=== PATIENT | female | born 1980 | race Caucasian/White ===

== ENCOUNTER 2021-12-26 09:47 | Outpatient (CLI) | payer OTHER, SELFPAY ==
--- NOTE | ~2021-12-26 | MM_ITS ---
EXAMINATION: MM screening simon BI w terese HISTORY: Baseline screening mammogram TECHNIQUE: Craniocaudal and mediolateral oblique 3-D tomosynthesis images were obtained and synthetic 2-D images were generated. CAD analysis was submitted and interpreted. COMPARISON: None, baseline BREAST PARENCHYMAL COMPOSITION: The breasts are heterogeneously dense, which may obscure small masses . FINDINGS: There is no suspicious mass, calcification, or architectural distortion to suggest malignan cy in either breast. IMPRESSION: 1. No mammographic evidence of malignancy. 2. Recommend routine screening mammography in one year. BI-RADS Category 1: Negative Reviewed, dictated and finalized at location A.
== END 2021-12-26 09:48 | disposition home or self-care (01) ==
LOC: ANHIMG 09:50
PROVIDERS: PCP Obstetrics & Gynecology; Visit Provider Obstetrics & Gynecology
DX: Z12.31 Encounter for screening mammogram for malignant neoplasm of breast (principal)
CPT/HCPCS: 77063; 77067

== ENCOUNTER → 2022-09-20 11:18 | Outpatient (CLI) | payer OTHER, SELFPAY ==
--- NOTE | ~2022-09-20 | XR_ITS ---
Cervical Spine: AP, lateral, open-mouth views Clinical History: Pain Findings: The normal lordotic curve is maintained. The vertebral bodies and posterior elements appea r intact. The intervertebral disc spaces are well maintained. Pre-vertebral soft tissues are unremar kable. Impression: No significant abnormality is seen. Please note that CT imaging is significantly more sensitive for cervical spine trauma, and should be performed for further evaluation if clinically warranted. Reviewed, dictated and finalized at [facility]. Impression: No significant abnormality is seen. Please note that CT imaging is significant ly more sensitive for cervical spine trauma, and should be performed for furthe r evaluation if clinically warranted.
== END ==
PROVIDERS: Visit Provider Chiropractor
DX: M54.2 Cervicalgia (principal)
CPT/HCPCS: 72040

== ENCOUNTER 2023-06-19 07:27 | Outpatient (CLI) | payer BC, SELFPAY ==
--- NOTE | ~2023-06-19 | MM_ITS ---
EXAMINATION: MM screening [facility] BI w terese HISTORY: Screening TECHNIQUE: Craniocaudal and mediolateral oblique 3-D tomosynthesis images were obtained and synthetic 2-D images were generated. CAD analysis was submitted and interpreted. COMPARISON: 12/26/2021 BREAST PARENCHYMAL COMPOSITION: There are scattered areas of fibroglandular density. FINDINGS: There is developing asymmetry in the outer aspect of the left breast on CC view. The right breast is stable without evidence for malignancy. IMPRESSION: 1. Developing asymmetries of the outer aspect of the left breast. 2. Additional mammographic views and possible breast ultrasound are recommended. BI-RADS Category 0: Incomplete: Needs additional imaging evaluation. Reviewed, dictated and finalized at location A. CLERK IMPRESSION: 1. Developing asymmetries of the outer aspect of the left breast. 2. Additional mammographic views and possible breast ultrasound are recommended . BI-RADS Category 0: Incomplete: Needs additional imaging evaluation.
== END 2023-06-19 07:28 | disposition home or self-care (01) ==
PROVIDERS: PCP Nurse Practitioner Adult Health; Visit Provider Registered Nurse
DX: Z12.31 Encounter for screening mammogram for malignant neoplasm of breast (principal); N64.89 Other specified disorders of breast
CPT/HCPCS: 77063; 77067

== ENCOUNTER 2023-07-18 10:35 | Outpatient (CLI) | payer BC, SELFPAY ==
--- NOTE | ~2023-07-18 | MMUS_ITS ---
EXAMINATION: MM diagnostic simon LT w terese, US breast LT limited HISTORY: Follow-up left breast asymmetries TECHNIQUE: Additional 3-D tomosynthesis images of the left breast were performed and synthetic 2-D im ages were generated. CAD analysis was submitted and interpreted. High resolution Limited left breast ultrasound was performed. COMPARISON: Comparison to multiple prior studies sequentially, with oldest reviewed study dated 12/2021. BREAST PARENCHYMAL COMPOSITION: Not dense: There are scattered areas of fibroglandular density. FINDINGS: MAMMOGRAPHIC FINDINGS: There are no suspicious masses, calcifications or architectural distortion of the left breast. The le ft breast asymmetries are less apparent with spot compression views ULTRASOUND: Limited left breast ultrasound: Normal heterogeneous echotexture without focal solid or cystic mass. IMPRESSION: 1. No evidence for malignancy in the left breast. 2. Routine yearly screening mammogram and regular clinical breast examination are recommended. BI-RADS Category 1: Negative Reviewed, dictated and finalized at location A. TIONAL EDUCATION PROFESSIONAL IMPRESSION: 1. No evidence for malignancy in the left breast. 2. Routine yearly screening mammogram and regular clinical breast examination a re recommended. BI-RADS Category 1: Negative
== END 2023-07-18 10:36 | disposition home or self-care (01) ==
LOC: ANHIMG 10:37
PROVIDERS: PCP Nurse Practitioner Adult Health; Visit Provider Registered Nurse
DX: R92.8 Other abnormal and inconclusive findings on diagnostic imaging of breast (principal)
CPT/HCPCS: 76642; 77061; 77065; G0279

== ENCOUNTER 2024-04-29 08:15 | Outpatient (CLI) | payer BC, SELFPAY ==
[2024-04-29 20:29] LABS: Alanine Aminotransferase 11 U/L (6-35); Albumin Level 4.3 g/dL (3.5-5.1); Alkaline Phosphatase 52 U/L (38-126); Anion Gap 5 mmol/L (4-12); Aspartate Amino Transferase 44 U/L (14-36); Bilirubin,Total 0.7 mg/dL (0.2-1.3); Blood Urea Nitrogen 10 mg/dL (7-17); Calcium 9.2 mg/dL (8.4-10.2); Carbon Dioxide 28 mmol/L (22-30); Chloride 104 mmol/L (98-107); Cholesterol 188 mg/dL (0-200); Estimated Glomerular Filt Rate > 60; Glucose 80 mg/dL (65-110); HDL Direct 62 mg/dL; Potassium 4.3 mmol/L (3.4-5.0); Sodium 137 mmol/L (137-145); Triglycerides 65 mg/dL (<150)
[2024-04-29 20:39] LABS: Hematocrit 38.7 % (37.0-47.0); Hemoglobin 12.3 g/dL (12.0-15.0); Mean Corpuscular HGB Conc 31.8 g/dl (32-36); Mean Corpuscular Hemoglobin 31.5 pg (26-34); Mean Platelet Volume 10.9 fl (7.4-10.4); Platelet Count Result 243 k/mm3 (150-375); Red Blood Count 3.91 M/mm3 (4.2-5.4); Red Cell Distribution Width 12.6 % (11.5-14.5); White Blood Count 6.3 K/mm3 (4.5-10.0)
[2024-04-29 20:41] LABS: LDL Cholesterol Direct 93 mg/dL
[2024-04-29 20:47] LABS: Free T4 Free Thyroxine 0.82 ng/dL (0.78-2.19); Vitamin D 25 Hydroxy 43.7 ng/mL
[2024-05-01 09:03] LABS: Thyroid Peroxidase Antibodies <1 IU/mL (<9)
== END 2024-04-29 08:16 | disposition home or self-care (01) ==
PROVIDERS: PCP Nurse Practitioner Adult Health; Visit Provider Nurse Practitioner Adult Health
DX: R53.83 Other fatigue (principal); Z13.29 Encounter for screening for other suspected endocrine disorder; Z13.228 Encounter for screening for other metabolic disorders; Z13.220 Encounter for screening for lipoid disorders; Z13.9 Encounter for screening, unspecified
CPT/HCPCS: 36415; 80053; 80061; 82306; 82607; 84439; 84443; 85027; 86376

== ENCOUNTER 2024-05-28 14:24 | Outpatient (CLI) | payer OTHER, SELFPAY ==
[2024-05-30 04:47] LABS: FSH 7.5 mIU/mL
== END 2024-05-28 14:25 | disposition home or self-care (01) ==
LOC: ANHLAB 14:26
PROVIDERS: PCP Nurse Practitioner Adult Health; Visit Provider Nurse Practitioner Obstetrics & Gynecology
DX: N95.1 Menopausal and female climacteric states (principal)
CPT/HCPCS: 36415; 82670; 83001; 84443

== ENCOUNTER 2024-08-04 10:29 | Outpatient (CLI) | payer OTHER, SELFPAY ==
--- NOTE | ~2024-08-04 | US_ITS ---
Left anterior ABDOMINAL wall ULTRASOUND (Doppler ultrasound interrogation techniques used as needed f or this exam.) Ordering provider: Jane Moon APRN History: . R22.2 - Localized swelling, mass and lump, trunk . Comparison: None. FINDINGS/impression: No definite mass is seen. Reviewed, dictated and finalized at location A.
== END 2024-08-04 10:30 | disposition home or self-care (01) ==
LOC: MICIMG 10:30
PROVIDERS: PCP Nurse Practitioner Adult Health; Visit Provider Nurse Practitioner Adult Health
DX: R22.2 Localized swelling, mass and lump, trunk (principal)
CPT/HCPCS: 76705

== ENCOUNTER 2024-08-20 14:37 | Outpatient (CLI) | payer OTHER, SELFPAY ==
--- NOTE | ~2024-08-20 | MM_ITS ---
EXAMINATION: MM screening simon BI w terese HISTORY: Screening TECHNIQUE: Craniocaudal and mediolateral oblique 3-D tomosynthesis images were obtained and synthetic 2-D images were generated. CAD analysis was submitted and interpreted. COMPARISON: Comparison to multiple prior studies sequentially, with oldest reviewed study dated 12/2021. BREAST PARENCHYMAL COMPOSITION: Not dense: There are scattered areas of fibroglandular density. FINDINGS: There is no evidence of suspicious mass, calcification, or architectural distortion to sugg est malignancy in either breast. There has been no suspicious interval change. IMPRESSION: 1. No mammographic evidence of malignancy. 2. Recommend routine screening mammography in one year. BI-RADS Category 1: Negative Reviewed, dictated and finalized at location A.
--- OUTSIDE RECORDS SUMMARY | 2024-08-20 16:06 | XMS_ITS | Encounter Summary ---
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
--- OUTSIDE RECORDS SUMMARY | 2024-08-20 16:06 | XMS_ITS | Encounter Summary ---
Author Organization [facility] Address [address] [place] [address] Care Team Providers Care Materials Associate Name Role Phone Anahi Tan MD Primary Care Provider [phone] Encounter Details Date Type Department Care Team (Late st Contact Info) Description 11/02/2003 Outpatient Historical [facility] Internal Medicine - [place] [address] [place] [address] [place] [address] [place] [facility] [place] [address] Social History Tobacco Use Types Packs/Day Years Used Date Smoking Tobacco: Never Assessed Comments Unknown Sex and Gender Information Value Date Recorded Sex Assigned at Not on file 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
--- OUTSIDE RECORDS SUMMARY | 2024-08-20 16:06 | XMS_ITS | Encounter Summary ---
Author Organization [facility] Address [address] [place] [address] Care Team Providers Care Avionics Supervisor Name Role Phone Anahi Tan MD Primary Care Provider [phone] Encounter Details Date Type Department Care Team (Late st Contact Info) Description 04/18/2004 Outpatient Historical [facility] Internal Medicine - [place] [address] [place] [address] [place] [address] [facility] [place] [address] Social History Tobacco Use Types Packs/Day Years Used Date Smoking Tobacco: Never Assessed Comments Unknown Sex and Gender Information Value Date Recorded Sex Assigned at Not on file 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
--- OUTSIDE RECORDS SUMMARY | 2024-08-20 16:06 | XMS_ITS | Clinical Summary ---
[facility] Address [address] [facility] [address] Attn: Epic Prelude ADT [place] [address] Care Team Providers Care Host/Hostess Ground Name Role Phone Anahi Tan MD Primary Care Provider Allergies Active Allergy Reactions Criticality Noted Date Comments No Known Allergies 04/18/2004 Active Problems Problem Noted Date Diagnosed Date Morbid obesity 04/19/2004 Other and unspecified hyperlipidemia 04/18/2004 Rash and other nonspecific skin eruption 004 Diarrhea 11/02/2003 Migraine, unspecified, witho ut mention of intractable migraine without mention of status migrainosus 11/02/2003 Lumbago 11/02/2003 Routine general medical exam ination at a health care facility 11/02/2003 Social History Tobacco Use Types Packs/Day Years Used Date Smoking Tobacco: Never Assessed Comments Unknown Sex and Gender Information Value Date Recorded Sex Assigned at Not on file 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 Gender Identity Not on file Sexual Orientation Not on file Plan of Treatment Health Maintenance Due Date Last Done Comments DTAP/TDAP/TD VACCINES (1 - Tdap) 1999 HEPATITIS B VACCINES (1 of 3 - 19+ 3-dose series) 1999 HPV/Cotest (21-29) 2001 PAP SMEAR 2001 CERVICAL CANCER SCREENING 2010 HPV/Cotest (30-65) 2010 PAP SMEAR 2010 BREAST CANCER SCREENING 2020 INFLUENZA VACCINE (#1) 2023 HPV VACCINES Aged Out No longer eligi ble based on patient's age to complete this topic Care Teams Host/Hostess Ground Relationship Specialty [place] [address] [place] [address] PCP - General 09/25/07
--- OUTSIDE RECORDS SUMMARY | 2024-08-20 16:06 | XMS_ITS | Clinical Summary ---
Author Organization [facility] Address [address] [place] [address] Care Team Providers Care Blue Leather Setter Name Role Phone Kimhaylie Jane JOESPH Primary Care Provider [phone] Allergies Active Allergy Reactions Criticality Noted Date Comments Adhesive Tape-Silicones Rash Medium 04/24/2017 Oxycodone-Acetaminophen Vomiting Low 01/01/2018 Medications cyanocobalamin (Vitamin B-12) 500 mcg tabletIndication s:Prevention of Vitamin B12 Deficiency Take 1 tablet (500 mcg total) by mouth daily. 30 tablet 01/11/2018 Active docusate sodium (COLACE) 100 mg capsuleIndicatio ns:constipation, stool softener Take 1 capsule (100 mg total) by mouth 2 (two) times a day. 30 capsule 01/11/2018 Active multivit-mineral -iron-lutein tablet Take by mouth. Active simethicone (MYLICON,GAS-X) 125 mg capsule Take 180 mg by mouth every 6 (six) hours as needed for flatulence. Active LILETTA 19.5 mcg/24 hrs (5 yrs) 52 mg IUD 09/09/2018 Acti ve ascorbic acid (VITAMIN C) 500 mg tablet,chewable Take 1 tablet/chew tab (500 mg total) by mouth daily Active biotin 1 mg tablet Take 1 tablet (1,000 mcg total) by mouth 3 (three) times a day Active cholecalciferol (VITAMIN D-3) 5,000 unit tablet Active Lactobacillus acidophilus 10 billion cell capsule Take by mouth Active FLUoxetine 10 mg tablet 07/03/2023 Active Active Problems Problem Noted Date Diagnosed Date Syncope and collapse 05/05/2023 Mixed hyperlipidemia 05/10/2018 Status post bariatric surgery 01/18/2018 Morbid obesity 11/07/2017 Overview (11/07/2017): Added automatically from request for surgery [id number] Hypertension 11/02/2017 Overview (11/02/2017): On Amlodipin 10 mg Tolerating well Diastolic bp has been slightly high , in mid 80s, was in 90s today Assessment & Plan (11/02/2017 8:40 AM CDT): Recommended daily monitoring and asked her to send us her Bp log Will adjust medicine if needed Continue with Amlodipin 10 mg for now Class 2 obesity in adult 11/02/2017 Overview (11/02/2017): Pt has been on Saxenda She also has been watching her diet and exercising Has lost about 10 lb since 06/2107 Considering gastric by pass surgery Assessment & Plan (11/02/2017 8:38 AM CDT): Will continue with saxenda Continue with diet and exercise Recommended going forward with gastric by pass surgery Surgical History Surgery Date Site/Laterality Comments MYRINGOTOMY W/ TUBES Myringotomy - (Added by TW Conv) [place] CHOLECYSTECTOMY Cholecystectomy - (Added by TW Conv) WRIST SURGERY Wrist Surgery - cyst removal in 2015 (Added by TW Conv) GALLBLADDER SURGERY Gallbladder Surgery - (Added by TW Conv) MICRODISCECTOMY LUMBAR 05/21/2012 - 05/20/2013 L5-S1 KNEE ARTHROSCOPY W/ LATERAL RELEASE 05/21/2008 - 05/20/2009 Right CYST REMOVAL 05/21/2015 - 05/20/2016 Left wrist MITZY-EN-Y PROCEDURE Medical History Medical History Date Comments Other intervertebral disc de generation, lumbosacral region Disc degeneration, lumbosacr al - L5-S1 -- undergoing injection treatment. (Added by TW Conv) Primary osteoarthritis of one knee Osteoarthritis of knee - (Added by TW Conv) Encounter for screening for other suspected endocrine disorder Thyroid disorder screenin g - (Added by TW Conv) Encounter for screening for other suspected endocrine disorder Thyroid disorder screenin g - (Added by TW Conv) Other specified counseling Advan ce care planning - (Added by TW Conv) Headache Hyperlipidemia PCOS (polycystic ovarian syndrome) Fatty liver Prediabetes Migraine PONV (postoperative nausea and vomiting) post op nausea does well with Zofran and scopolamine patch in holding Type 2 diabetes mellitus (HCC) Hypertension Family History Medical History Relation Name Comments Arthritis Father Family history of arthritis - (Added by TW Conv)/Family history of arthritis - (Added by TW Conv) Cancer Father Family history of malignant neoplasm - (Added by TW Conv)/Family history of malignant neoplasm - (Added by TW Conv) Diabetes Father Family history of diabetes mellitus - (Added by TW Conv)/Family history of diabetes mellitus - (Added by TW Conv) Hypertension Father Family history of hypertension - (Added by TW Conv)/Family history of hypertension - (Added by TW Conv) Kidney disease Father Family histor y of kidney disease - (Added by TW Conv)/Family history of kidney disease - (Added by TW Conv) Melanoma Father Melanoma - (Add ed by TW Conv)/Melanoma - (Added by TW Conv) Migraines Father Anesthesia problems Neg Hx Early Neg Hx Heart attack Neg Hx Heart disease Neg Hx Malig Hypertension Neg Hx Malig Hyperthermia Neg Hx Pseudochol deficiency Neg Hx Stroke Neg Hx Relation Name Status Comments Father Social History Tobacco Use Types Packs/Day Years Used Date Smoking Tobacco: Former Cigarettes 0 01/01/1998 - 01/02/2000 Smokeless Tobacco: Never Tobacco Cessation:Counseling Given: Not Answered Alcohol Use Standard Drinks/Week Comments No 0 (1 standard drink = 0.6 oz pur e alcohol) Comments No Sex and Gender Information Value Date Recorded Sex Assigned at Not on file Legal Sex Female 10:51 AM 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 OIL WELL Gender Identity Female 10/15/2019 7:47 AM CDT Sexual Orientation Straight 10/15/2019 7: 47 AM CDT Obstetrics History Last Filed Vital Signs Vital Sign Reading Time Taken Comments Blood Pressure 147/81 07/25/2023 8:08 AM 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 OIL WELL Pulse 62 07/25/2023 8:08 AM 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 OIL WELL Temperature 36.9 C (98.4 F) 07/25/2023 8:08 AM 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 OIL WELL Respiratory Rate 12 01/22/2018 3:34 AM CDT Oxygen Saturation 100% 07/25/2023 8:08 AM 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 OIL WELL Inhaled Oxygen Concentration - - Weight 91.4 kg (201 lb 8 oz) 07/25/2023 8:08 AM 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 OIL WELL Height 177.8 cm (5' 10 ) 07/25/2023 8:08 AM 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 OIL WELL Body Mass Index 28.91 07/25/2023 8:08 AM 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 OIL WELL Plan of Treatment Health Maintenance Due Date Last Done Comments Breast Cancer Screening-Mammogram 1980 Cervical Cancer Screening 1980 Depression Screening 1980 Hepatitis C Screening 1980 Varicella Vaccines (1 of 2 - 13+ 2-dose series) 1993 Hepatitis B Screening 1998 Regular Well Visit/Exam 18-64 1998 Covid-19 Vaccine (2023-2 5 season) 2024 06/21/2021, 01/18/2021, 12/28/2020 Influenza Vaccine (Season Ended) 2025 08/30/2021 DTaP/Tdap/Td Vaccine (2 - Td or Tdap) 09/01/2032 09/01/2022 HPV Vaccines Aged Out No longer eligi ble based on patient's age to complete this topic Pneumococcal vaccine <65 Aged Out No longer eligible based on patient's age to complete this topic Insurance [facility] [address] CHOICE PLUS [facility] [employer] [place] Advance Directives For more information, please contact: [phone] * Full Code (Latest Code Status on File) Date Activated Date Inactivated Comments 01/09/2018 5:33 PM 01/11/2018 4:08 PM Care Teams Blue Leather Setter Relationship Specialty Start Date End Date Jane Moon NP [address] [place] [address] PCP - General Nurse Practitioner 07/25/23
--- OUTSIDE RECORDS SUMMARY | 2024-08-20 16:06 | XMS_ITS | Referral Summary ---
Author Organization [facility] Address [address] [place] [address] Care Team Providers Care Slasher Sawyer Name Role Phone Kimhalyie Jane JOESPH Primary Care Provider [phone] Allergies Active Allergy Reactions Criticality Noted Date [...] (11/07/2017): Added automatically from request for surgery [id number] Hypertension 11/02/2017 Overview (11/02/2017): On Amlodipin 10 [...] going forward with gastric by pass surgery Social History Tobacco Use Types Packs/Day Years Used Date Smoking Tobacco: Former Cigarettes 0 01/01/1998 - 01/02/2000 Smokeless Tobacco: Never Tobacco Cessation:Counseling Given: Not Answered Alcohol Use Standard Drinks/Week Comments No 0 (1 standard drink = 0.6 oz pur e alcohol) Comments No Sex and Gender Information Value Date Recorded Sex Assigned at Not on file 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 Sex 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 Gender Identity Female 10/15/2019 7:47 AM CDT Sexual Orientation Straight 10/15/2019 7: 47 AM CDT Last Filed Vital Signs Vital Sign Reading Time Taken Comments Blood Pressure 147/81 07/25/2023 8:08 AM PRESS HAND SUPERVISOR Pulse 62 07/25/2023 8:08 AM PRESS HAND SUPERVISOR Temperature 36.9 C (98.4 F) 07/25/2023 8:08 AM PRESS HAND SUPERVISOR Respiratory Rate 12 01/22/2018 3:34 AM CDT Oxygen Saturation 100% 07/25/2023 8:08 AM PRESS HAND SUPERVISOR Inhaled Oxygen Concentration - - Weight 91.4 kg (201 lb 8 oz) 07/25/2023 8:08 AM PRESS HAND SUPERVISOR Height 177.8 cm (5' 10 ) 07/25/2023 8:08 AM PRESS HAND SUPERVISOR Body Mass Index 28.91 07/25/2023 8:08 AM PRESS HAND SUPERVISOR Plan of Treatment Not on file Insurance [facility] CHOICE PLUS [place] [id number] [facility] [employer] [place] Advance Directives For more information, please contact: [phone] * Full Code (Latest Code Status on File) Date Activated Date Inactivated Comments 01/09/2018 5:33 PM 01/11/2018 4:08 PM Care Teams Slasher Sawyer Relationship Specialty Start Date End Date Jane Moon NP [address] [place] [address] PCP - General Nurse Practitioner 07/25/23
--- OUTSIDE RECORDS SUMMARY | 2024-08-20 16:06 | XMS_ITS | Encounter Summary ---
Author Organization [employer] Address 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
--- OUTSIDE RECORDS SUMMARY | 2024-08-20 16:06 | XMS_ITS | Encounter Summary ---
Author Organization [facility] Address [address] [place] [address] Care Team Providers Care Summer Analyst Name Role Phone Anahi Tan MD Primary Care Provider [phone] Encounter Details Date Type Department Care Team (Late st Contact Info) Description 04/18/2004 Outpatient Historical [facility] Internal Medicine - [place] [address] [place] [address] [place] [address] [place] [address] Social History Tobacco Use Types Packs/Day Years Used Date Smoking Tobacco: Never Assessed Comments Unknown Sex and Gender Information Value Date Recorded Sex Assigned at Not on file 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
--- OUTSIDE RECORDS SUMMARY | 2024-08-20 16:06 | XMS_ITS | Clinical Summary ---
Author Organization [facility] Address [facility] [place] [address] Care Team Providers Care Meter Technician Name Role Phone José Miguel Song MD Primary Care Provider [phone] Allergies Active Allergy Reactions Criticality Noted Date Comments Nsaids Other (see comment) 09/01/2022 abd sx Tape Rash Low 09/01/2022 Immunizations Name Administration Dates Next Due Tdap (Boostrix) 09/01/2022 Social History Tobacco Use Types Packs/Day Years Used Date Smoking Tobacco: Never Assessed Tobacco Cessation:Counseling Given: Not Answered Alcohol Use Standard Drinks/Week Comments Not Currently 0 (1 standard drink = 0.6 oz pur e alcohol) Comments No Sex and Gender Information Value Date Recorded Sex Assigned at Not on file 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 Gender Identity Not on file Sexual Orientation Not on file Last Filed Vital Signs Vital Sign Reading Time Taken Comments Blood Pressure 138/84 09/01/2022 5:00 PM CDT Pulse 65 09/01/2022 4:10 PM CDT Temperature 36.6 C (97.9 F) 09/01/2022 4:10 PM CDT Respiratory Rate 18 09/01/2022 4:10 PM CDT Oxygen Saturation 100% 09/01/2022 5:00 PM CDT Inhaled Oxygen Concentration - - Weight 88.5 kg (195 lb 3.2 oz) 09/01/2022 4:10 P M CDT Height 175.3 cm (5' 9 ) 09/01/2022 4:10 PM CDT Body Mass Index 28.83 09/01/2022 4:10 PM CDT Plan of Treatment Health Maintenance Due Date Last Done Comments Cervical Cancer Screening Pa p Smear (Age 30 to 64) Every 3 Years 1980 Annual Physical 1983 Hepatitis C 1998 Hepatitis B Vaccines (1 of 3 - 19+ 3-dose series) 1999 Cervical Cancer Screening Pa p with HPV Testing (Age 30 to 64) Every 5 Years 2010 Cervical Cancer Screening wi th HPV 2010 Mammogram Screening 2020 COVID-19 Vaccine (4 - 2023-2 5 season) 2024 06/21/2021, 01/18/2021, 12/28/2020 DTaP, Tdap and Td Vaccines ( 2 - Td or Tdap) 09/01/2032 09/01/2022 HPV Vaccines Aged Out No longer eligi ble based on patient's age to complete this topic Meningococcal B Vaccine Aged Out No l onger eligible based on patient's age to complete this topic Meningococcal Vaccine Aged Out No tommy meme eligible based on patient's age to complete this topic Pneumococcal Vaccine: Pediatrics (0 to 5 Years) and At-Risk Patients (6 to 64 Years) Aged Out No longer eligible b ased on patient's age to complete this topic RSV Immunizations Under 20 Months Aged Out No longer eligible b ased on patient's age to complete this topic Insurance [facility] Care Teams Meter Technician Relationship Specialty Start Date End Date José Miguel Song MD [address] [place] [address] [address], [place] [address] PCP - General ENDOCRINOLOGY 09/01/22
--- OUTSIDE RECORDS SUMMARY | 2024-08-20 16:06 | XMS_ITS | Encounter Summary ---
Author Organization [facility] Address [address] [place] [address] Phone Care Team Providers Care Investor Name Role Phone José Miguel Song MD Primary Care Provider [phone] Jane Moon NP Primary Care Provider [phone] Encounter Details Date Type Department Care Team (Latest Contact Info) Description 07/19/2023 Orders Only [facility] Scanning, Provider Social History Tobacco Use Types Packs/Day Years Used Date Smoking Tobacco: Former Cigarettes 0 01/01/1998 - 01/02/2000 Smokeless Tobacco: Never Alcohol Use Standard Drinks/Week Comments No 0 (1 standard drink = 0.6 oz pur e alcohol) Comments No Sex and Gender Information Value Date Recorded Sex Assigned at Not on file 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 Sex 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:51 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 Gender Identity Female 10/15/2019 7:47 AM CDT Sexual Orientation Straight 10/15/2019 7: 47 AM CDT documented as of this encounter Plan of Treatment Not on file documented as of this encounter Procedures Procedure Name Priority Date/Time Associated Diagnosis Comments SCAN - LABS 07/19/2023 documented in this encounter Results * SCAN - LABS (07/19/2023) us Provider Scanning Final Result documented in this encounter Visit Diagnoses Not on filedocumented in this encounter Care Teams Investor Relationship Specialty Start Date End Date José Miguel Song MD PCP - General Endocrinology Diabetes & Metabolism 02/21/23 07/24/23 Jane Moon NP [address] [place] [address] PCP - General Nurse Practitioner 07/25/23 documented as of this encounter
--- OUTSIDE RECORDS SUMMARY | 2024-08-20 16:06 | XMS_ITS | Encounter Summary ---
Author Organization [facility] Address [address] [place] [address] Care Team Providers Care Underground Utility Locator Name Role Phone Anahi Tan MD Primary Care Provider [phone] Encounter Details Date Type Department Care Team (Late st Contact Info) Description 11/02/2003 Outpatient Historical [facility] Internal Medicine - [place] [address] [place] [address] [place] [address] 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 [address] PCP - General 09/25/07 documented as of this encounter
--- OUTSIDE RECORDS SUMMARY | 2024-08-20 16:06 | XMS_ITS | Encounter Summary ---
Author Organization [facility] Address [address] [place] [address] Care Team Providers Care Patrol Driver Name Role Phone Jesse Dean MD Primary Care Provider José Miguel Song MD Primary Care Provider [phone] Jane Moon NP Primary Care Provider [phone] Encounter Details Date Type Department Care Team (Late st Contact Info) Description 01/11/2018 Documentation [facility] [address] [place] [address] Bebe Lezama RN Social History Tobacco Use Types Packs/Day Years Used Date Smoking Tobacco: Former Cigarettes 0 01/01/1998 - 01/02/2000 Smokeless Tobacco: Never Alcohol Use Standard Drinks/Week Comments No 0 (1 standard drink = 0.6 oz pur e alcohol) Comments No Sex and Gender Information Value Date Recorded Sex Assigned at Not on file 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
== END 2024-08-20 14:38 | disposition home or self-care (01) ==
LOC: ANHIMG 14:41
PROVIDERS: PCP Nurse Practitioner Adult Health; Visit Provider Nurse Practitioner Obstetrics & Gynecology
DX: Z12.31 Encounter for screening mammogram for malignant neoplasm of breast (principal); N95.1 Menopausal and female climacteric states
CPT/HCPCS: 77063; 77067

== ENCOUNTER 2025-01-07 16:33 | Emergency (ER) | payer OTHER, SELFPAY ==
[2025-01-07 16:35] VITALS: BP 126/86; PULSE 113; RESP 18; TEMP 36.6; O2SAT 97
--- OUTSIDE RECORDS SUMMARY | 2025-01-07 16:36 | XMS_ITS | Encounter Summary ---
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
--- OUTSIDE RECORDS SUMMARY | 2025-01-07 16:36 | XMS_ITS | Encounter Summary ---
Author Organization [facility] Address [address] [place] [address] Care Team Providers Care Barber Stylist Name Role Phone Anahi Tan MD Primary Care Provider [phone] Encounter Details Date Type Department Care Team (Late st Contact Info) Description 11/02/2003 Outpatient Historical [facility] Internal Medicine - [place] [address] [place] [address] [place] [address] [place] [facility] [place] [address] Social History Tobacco Use Types Packs/Day Years Used Date Smoking Tobacco: Never Assessed Comments Unknown Sex and Gender Information Value Date Recorded Sex Assigned at Not on file 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
--- OUTSIDE RECORDS SUMMARY | 2025-01-07 16:36 | XMS_ITS | Encounter Summary ---
Author Organization [facility] Address [address] [place] [address] Care Team Providers Care Band Tumbler Name Role Phone Anahi Tan MD Primary Care Provider [phone] Encounter Details Date Type Department Care Team (Late st Contact Info) Description 04/18/2004 Outpatient Historical [facility] Internal Medicine - [place] [address] [place] [address] [place] [address] [place] [facility] [place] [address] Social History Tobacco Use Types Packs/Day Years Used Date Smoking Tobacco: Never Assessed Comments Unknown Sex and Gender Information Value Date Recorded Sex Assigned at Not on file Legal Sex Female 3:00 AM BUSINESS SOLUTIONS DIRECTOR Gender Identity Not on file Sexual Orientation Not on file documented as of this encounter Plan of Treatment Not on file documented as of this encounter Visit Diagnoses Not on filedocumented in this encounter Care Teams Band Tumbler Relationship Specialty [place] [address] [facility] [place] [address] PCP - General 09/25/07 documented as of this encounter
--- OUTSIDE RECORDS SUMMARY | 2025-01-07 16:36 | XMS_ITS | Encounter Summary ---
Author Organization [facility] Address [address] [place] [address] Care Team Providers Care Light Rail Vehicle Operator Name Role Phone Anahi Tan MD Primary Care Provider [phone] Encounter Details Date Type Department Care Team (Late st Contact Info) Description 04/18/2004 Outpatient Historical [facility] Internal Medicine - [place] [address] [place] [address] [place] [address] [place] [address] Social History Tobacco Use Types Packs/Day Years Used Date Smoking Tobacco: Never Assessed Comments Unknown Sex and Gender Information Value Date Recorded Sex Assigned at Not on file Legal Sex Female 3:00 AM RESPONDER Gender Identity Not on file Sexual Orientation Not on file documented as of this encounter Plan of Treatment Not on file documented as of this encounter Visit Diagnoses Not on filedocumented in this encounter Care Teams Light Rail Vehicle Operator Relationship Specialty [place] [address] [place] [facility] [place] [address] PCP - General 09/25/07 documented as of this encounter
--- OUTSIDE RECORDS SUMMARY | 2025-01-07 16:36 | XMS_ITS | Encounter Summary ---
Author Organization [facility] Address [facility] [place] [address] Care Team Providers Care Instructor Dancing Name Role Phone José Miguel Song MD Primary Care Provider [phone] Encounter Details Date Type Department Care Team (Late st Contact Info) Description 10/26/2018 Abstract [facility] [address] [address] , Generic Conversion, Social History Tobacco Use Types Packs/Day Years Used Date Smoking Tobacco: Never Assessed Comments Unknown Sex and Gender Information Value Date Recorded Sex Assigned at Not on file Legal Sex Female 5:50 PM INSOLE ROUNDER Gender Identity Not on file Sexual Orientation Not on file documented as of this encounter Plan of Treatment Not on file documented as of this encounter Visit Diagnoses Not on filedocumented in this encounter Care Teams Instructor Dancing Relationship Specialty Start Date End Date José Miguel Song MD [address] [facility] [address], [place] [address] PCP - General ENDOCRINOLOGY 09/01/22 documented as of this encounter
--- OUTSIDE RECORDS SUMMARY | 2025-01-07 16:36 | XMS_ITS | Encounter Summary ---
Author Organization [facility] Address [address] [place] [address] Care Team Providers Care French Drawer Name Role Phone Jeses Dean MD Primary Care Provider José Miguel Song MD Primary Care Provider [phone] Jane Moon NP Primary Care Provider [phone] Encounter Details Date Type Department Care Team (Late st Contact Info) Description 01/11/2018 Documentation [facility] Case Management [address] [place] [address] Bebe Lezama RN Social History Tobacco Use Types Packs/Day Years Used Date Smoking Tobacco: Former Cigarettes 0 01/01/1998 - 01/02/2000 Smokeless Tobacco: Never Alcohol Use Standard Drinks/Week Comments No 0 (1 standard drink = 0.6 oz pur e alcohol) Comments No Sex and Gender Information Value Date Recorded Sex Assigned at Not on file 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 Sex 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
--- OUTSIDE RECORDS SUMMARY | 2025-01-07 16:36 | XMS_ITS | Encounter Summary ---
Author Organization [facility] Address [address] [place] [address] Care Team Providers Care Remelt Furnace Expediter Name Role Phone Anahi Tan MD Primary Care Provider [phone] Encounter Details Date Type Department Care Team (Late st Contact Info) Description 11/02/2003 Outpatient Historical [facility] Internal Medicine - [place] [address] [place] [address] [place] [address] [place] [place] [facility] [place] [address] Social History Tobacco Use Types Packs/Day Years Used Date Smoking Tobacco: Never Assessed Comments Unknown Sex and Gender Information Value Date Recorded Sex Assigned at Not on file 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
--- OUTSIDE RECORDS SUMMARY | 2025-01-07 16:36 | XMS_ITS | Clinical Summary ---
Author Organization [facility] Address [address] [place] [address] Care Team Providers Care Top Bottom Attaching Machine Operator Name Role Phone Kimhaylie Jane JOESPH Primary Care Provider [phone] Allergies Active Allergy Reactions Criticality Noted Date [...] (11/07/2017): Added automatically from request for surgery [id number] Hypertension 11/02/2017 Overview (11/02/2017): On Amlodipin 10 [...] TUBES Myringotomy - (Added by TW Conv) DE CHOLECYSTECTOMY Cholecystectomy - (Added by TW Conv) [...] patch in holding Type 2 diabetes mellitus Hypertension Family History Medical History Relation Name [...] on file Legal Sex Female 10:51 AM JOB ANALYSIS MANAGER Gender Identity Female 10/15/2019 7:47 AM CDT Sexual Orientation Straight 10/15/2019 7: 47 AM CDT Obstetrics History Last Filed Vital Signs Vital Sign Reading Time Taken Comments Blood Pressure 147/81 07/25/2023 8:08 AM JOB ANALYSIS MANAGER Pulse 62 07/25/2023 8:08 AM JOB ANALYSIS MANAGER Temperature 36.9 C (98.4 F) 07/25/2023 8:08 AM JOB ANALYSIS MANAGER Respiratory Rate 12 01/22/2018 3:34 AM CDT Oxygen Saturation 100% 07/25/2023 8:08 AM JOB ANALYSIS MANAGER Inhaled Oxygen Concentration - - Weight 91.4 kg (201 lb 8 oz) 07/25/2023 8:08 AM JOB ANALYSIS MANAGER Height 177.8 cm (5' 10) 07/25/2023 8:08 AM JOB ANALYSIS MANAGER Body Mass Index 28.91 07/25/2023 8:08 AM JOB ANALYSIS MANAGER Plan of Treatment Health Maintenance Due Date Last Done Comments Breast Cancer Screening-Mammogram 1980 Cervical Cancer Screening 1980 Depression Screening 1980 Hepatitis C Screening 1980 Varicella Vaccines (1 of 2 - 13+ 2-dose series) 1993 Hepatitis B Screening 1998 Regular Well Visit/Exam 18-64 1998 HPV Vaccines (1 - 3-dose SCD M series) 2007 Covid-19 Vaccine ( - 2023-2 5 season) 2024 06/21/2021, 01/18/2021, 12/28/2020 Influenza Vaccine (#1) 2025 08/30/2021 DTaP/Tdap/Td Vaccine (2 - Td or Tdap) 09/01/2032 09/01/2022 Pneumococcal vaccine <65 Aged Out No longer eligible based on patient's age to complete this topic Insurance [employer] [facility]PPO Address: [address] [facility] [facility]PP[facility] Address: [address] [address] [place] [address] [facility] [employer] [place] Advance Directives For more information, please contact: [phone] * Full Code (Latest Code Status on File) Date Activated Date Inactivated Comments 01/09/2018 5:33 PM 01/11/2018 4:08 PM Care Teams Top Bottom Attaching Machine Operator Relationship Specialty Start Date End Date Jane Moon NP [address] [place] [address] PCP - General Nurse Practitioner 07/25/23
--- OUTSIDE RECORDS SUMMARY | 2025-01-07 16:36 | XMS_ITS | Clinical Summary ---
Author Organization [facility] Address [address] [place] [address] Care Team Providers Care Tile Molder Name Role Phone José Miguel Song MD Primary Care Provider [phone] Allergies Active Allergy Reactions Criticality Noted Date Comments Nsaids Other (see comment) 09/01/2022 abd sx Tape Rash Low 09/01/2022 Immunizations Immunization Administration Dates Next Due Tdap (Boostrix) 09/01/2022 Social History Tobacco Use Types Packs/Day Years Used Date Smoking Tobacco: Never Assessed Tobacco Cessation:Counseling Given: Not Answered Alcohol Use Standard Drinks/Week Comments Not Currently 0 (1 standard drink = 0.6 oz pur e alcohol) Comments No Sex and Gender Information Value Date Recorded Sex Assigned at Not on file Legal Sex Female 5:50 PM SOFTWARE SPECIALIST Gender Identity Not on file Sexual Orientation [...] P M CDT Height 175.3 cm (5' 9) 09/01/2022 4:10 PM CDT Body Mass Index 28.83 09/01/2022 4:10 PM CDT Plan of Treatment Health Maintenance Due Date Last Done Comments Cervical Cancer Screening Pa p Smear (Age 30 to 64) Every 3 Years 1980 Annual Physical 1983 Hepatitis C 1998 Hepatitis B Vaccines (1 of 3 - 19+ 3-dose series) 1999 HPV Vaccines (1 - 3-dose SCD M series) 2007 Cervical Cancer Screening Pa p with HPV Testing (Age 30 to 64) Every 5 Years 2010 Cervical Cancer Screening wi th HPV 2010 Mammogram Screening 2020 COVID-19 Vaccine (4 - 2023-2 5 season) 2024 06/21/2021, 01/18/2021, 12/28/2020 DTaP, Tdap and Td Vaccines ( 2 - Td or Tdap) 09/01/2032 09/01/2022 Meningococcal B Vaccine Aged Out No l onger eligible based on patient's age to complete this topic Meningococcal Vaccine Aged Out No tommy meme eligible based on patient's age to complete this topic Pneumococcal Vaccine: Pediatrics (0 to 5 Years) and At-Risk Patients (6 to 49 Years) Aged Out No longer eligible b ased on patient's age to complete this topic RSV Immunizations Under 20 Months Aged Out No longer eligible b ased on patient's age to complete this topic Insurance [facility] Care Teams Tile Molder Relationship Specialty Start Date End Date José Miugel Song MD [facility] [address] [place] [address] PCP - General ENDOCRINOLOGY 09/01/22
--- OUTSIDE RECORDS SUMMARY | 2025-01-07 16:36 | XMS_ITS | Clinical Summary ---
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
--- NOTE | 2025-01-07 16:41 | ED.NAVMDI ---
HPI - Nausea/Vomiting/Diarrhea General Chief complaint: Nausea/Vomiting/Diarrhea Stated complaint: diarrhea, vomiting , weakness Time Seen by Provider: 01/07/25 16:41 Source: patient Mode of arrival: ambulatory Limitations: no limitations History of Present Illness HPI Narrative: 44-year-old female with a history of anxiety, IBS, migraine status post bariatric surgery, status post cholecystectomy on Tirzepatide presents to the ED with 4 day history of -- nausea without any vomiting -- large volume diarrhea. She has had 6 episodes since this morning. Diarrhea is watery. No mucus or blood. -- No fever or chills. No abdominal pain. no recent antibiotics. has not eaten anything out of the ordinary. No one else sick at home. MD elicited complaint: diarrhea Onset (ago): day(s) ( Four days) Description of diarrhea: watery Associated nausea: Yes Associated abdominal pain: Yes ( chronic abdominal pain) Location of pain: diffuse Exacerbating factors: none Relieving factors: none Associated symptoms: denies other symptoms Related Data Home Medications ?Medication ?Instructions ?Recorded ?Confirmed ?Last Taken ?Type multivitamin (Daily Multi-Vitamin 1 tablet PO DAILY 12/28/20 07/29/24 Unknown History tablet) Saccharomyces boulardii 250 mg 5,000 mmu cells PO DAILY 01/11/22 07/29/24 Unknown History capsule (Daily Probiotic (S. boulardii)) levonorgestrel 20.4 mcg/24 hr (up 1 device intrauterine ONCE 03/22/23 07/29/24 Unknown History to 8 yrs) 52 mg intrauterine device (Liletta) Allergies Allergy/AdvReac Type Severity Reaction Status Date / Time acetaminophen (From Percocet) Allergy Unknown Unknown Verified 01/07/25 16:47 oxycodone (From Percocet) Allergy Unknown Unknown Verified 01/07/25 16:47 amoxicillin Allergy Unknown Verified 01/07/25 16:47 adhesive tape AdvReac Mild Rash Verified 01/07/25 16:47 Review of Systems Review of Systems: All systems reviewed & are unremarkable except as noted in HPI and below Constitutional: Constitutional: Reports as per HPI and Reports no additional constitutional complaints Eyes: Eyes: Reports as per HPI and Reports no additional eye complaints ENT: Reports system reviewed and no additional complaints, except as documented and Reports as per HPI Cardiovascular: Cardiovascular: Reports as per HPI and Reports no additional cardiovascular complaints Respiratory: Respiratory: Reports as per HPI and Reports no additional respiratory complaints Gastrointestinal: Gastrointestinal: Reports as per HPI, Reports no additional gastrointestinal complaints, Reports diarrhea and Reports nausea Genitourinary: Genitourinary: Reports no additional female genitourinary complaints and Reports as per HPI Musculoskeletal: Musculoskeletal: Reports no additional musculoskeletal complaints and Reports as per HPI Integumentary/Breasts: Skin/Breast: Reports system reviewed and no additional complaints, except as docu and Reports as per HPI Neurologic: Reports system reviewed and no additional complaints, except as documented and Reports as per HPI Psychiatric: Psychiatric: Reports no additional psychiatric complaints and Reports as per HPI Endocrine: Endocrine: Reports no additional endocrine complaints and Reports as per HPI Hematologic/Lymphatic: Hematologic/Lymphatic: Reports no additional hematologic/lymphatic complaints and Reports as per HPI Allergic/Immunologic: Allergic/Immunologic: Reports no additional allergic/immunologic complaints and Reports as per HPI PMFSH Past Medical History Medical History IBS (irritable bowel syndrome) Migraine Anxiety Premenstrual dysphoric disorder Surgical History Surgical History History of cholecystectomy H/O removal of cyst History of back surgery Hx of knee surgery History of bariatric surgery Family History Family History Father Hypertension Patient's father is in good health Family history of diabetes mellitus in first degree relative Grandparent Family history of malignant neoplasm Mother Depression Alzheimer disease Other Diabetes mellitus Family history of arthritis Social History Social History Smoking status: Never smoker Alcohol intake: current Alcohol use details: Socially Substance use: never Substance use type: does not use Lack of Transportation: No Lack of Food: Never True Current Housing: I Have Housing Concerned About Future Housing: No Difficulty Paying Gas/Electric Bills: No Difficulty Paying for Meds: No Currently Unemployed: No Education: Master's Degree or Higher Difficulty w/ Childcare or Family Care: No Living arrangements: alone Occupation/Education: occupation 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 Gender identity (if verbalized by the patient): Female Agree to blood products: Yes Exam Narrative: tachycardia with heart rate of 1 1 3 Const: General: no acute distress Orientation/consciousness: patient oriented x3 Limitations: no limitations HENMT: Head: normal to inspection Ears: external ears normal Face/Nose/Sinus: Normal external nose present Face and sinus: normal facial exam Throat: posterior oropharynx normal Eyes: Conjunctivae: conjunctivae normal Pupils: Equal, round and reactive pupils present EOM: EOMs intact bilaterally Direct Ophthalmoscopy: no photophobia Neck: Neck: normal visual inspection, no lymphadenopathy and no meningeal signs Chest: Chest palpation & inspection: normal inspection of the chest Resp: Effort & Inspection: normal respiratory effort Auscultation: clear to auscultation bilaterally Cardio: Rate: regular rate Rhythm: regular rhythm GI: GI Palp: Yes Soft to palpation Auscultation: normal bowel sounds Other: no tenderness/rigidity /rebound : General: Yes no CVA tenderness Back/Spine/Pelvis: Back: no CVA tenderness Skin: General skin exam: normal color Rashes: no rashes Wounds: no wounds Neuro: General: patient oriented x3, moves all extremities, no meningeal signs, no focal motor deficits and CN's II-XI intact bilaterally Cranial nerves: Yes Nystagmus not present Speech: normal speech Gait exam (Neuro): Normal gait present Extrem: General: normal to inspection and no clubbing, cyanosis or edema Psych: Mental Status: mental status grossly normal Affect: normal affect Attitude: cooperative Course Course Emergency Course: gastroenteritis-- abdominal examination did not show any evidence acute abdomen. The patient was noted to have a normal white cell count. Patient had metabolic acidosis secondary to diarrhea. Patient is on Tirzepatide with a history of gastric bypass which could explain nausea. patient has Zofran Vital Signs Vital signs: Vital Signs Temperature 36.6 C 01/07/25 16:35 Pulse Rate 113 H 01/07/25 16:35 Respiratory Rate 18 01/07/25 16:35 Blood Pressure 126/86 01/07/25 16:35 Pulse Oximetry 97 01/07/25 16:35 Oxygen Delivery Room Air 01/07/25 16:35 Temperature 36.6 C 01/07/25 16:35 Pulse Rate 113 H 01/07/25 16:35 Respiratory Rate 18 01/07/25 16:35 Blood Pressure 126/86 01/07/25 16:35 Pulse Oximetry 97 01/07/25 16:35 Oxygen Delivery Room Air 01/07/25 16:35 MDM - Nausea/Vomiting/Diarrhea MDM Narrative Medical decision making narrative: gastroenteritis Medical Records Attestation: I reviewed the patient's medical records. Lab Data Attestation: I reviewed the patient's lab results. 01/07/25 17:21 01/07/25 17:21 Labs: Lab Results 01/07/25 01/07/25 Range/Units 16:48 17:21 WBC 7.5 (4.8-10.8) K/mm3 RBC 4.58 (4.20-5.40) M/mm3 Hgb 14.3 (12.0-15.0) g/dL Hct 42.7 (35.0-49.0) % MCV 93.2 (78.0-102.0) fL MCH 31.2 H (27.0-31.0) pg MCHC 33.5 (32-36) g/dL RDW 12.3 (11.6-14.4) % Plt Count 228 (150-420) K/mm3 MPV 10.9 (9.2-11.8) fl Immature Gran % (Auto) Not Reportable Neut % (Auto) Not Reportable Lymph % (Auto) Not Reportable [place] % (Auto) Not Reportable Eos % (Auto) Not Reportable Baso % (Auto) Not Reportable Lymph # (Auto) Not Reportable [place] # (Auto) Not Reportable Eos # (Auto) Not Reportable Baso # (Auto) Not Reportable Abs Immat Gran (auto) Not Reportable Absolute Neuts (auto) Not Reportable Absolute Nucleated RBC Not Reportable Total Counted 100 Neutrophils % (Manual) 58 (46-73) % Band Neutrophils % 0 (0-6) % Lymphocytes % (Manual) 33 (18-44) % Monocytes % (Manual) 7 (3-9) % Eosinophils % (Manual) 2 (1-6) % Nucleated RBC % Not Reportable Abs Neuts (Manual) 4.35 (1.3-6.7) K/mm3 Abs Lymphs (Manual) 2.47 (1.1-4.5) K/mm3 Abs Monocytes (Manual) 0.52 (0.1-0.90) K/mm3 Absolute Eos (Manual) 0.15 (0.02-0.50) K/mm3 Atypical Lymphocytes Present Platelet Estimate Adequate (Adequate) Anisocytosis 2+ Schistocytes None seen PT 11.4 (9.50-12.1) Seconds INR 1.0 Sodium 139 (137-145) mmol/L Potassium 3.6 (3.4-5.0) mmol/L Chloride 105 (98-107) mmol/L Carbon Dioxide 18 L (22-30) mmol/L Anion Gap 16 H (4-12) mmol/L BUN 5 L D (7-17) mg/dL Creatinine 0.70 (0.7-1.0) mg/dL Estim Creat Clear Calc 96 ml/min Estimated GFR > 60 (59 - ) Glucose 66 (65-110) mg/dL Calculated Osmolality 283 L (285-295) mOsm/kg Lactic Acid 0.9 (0.4-2.0) mmol/L Calcium 9.0 (8.4-10.2) mg/dL Magnesium 1.6 (1.6-2.3) mg/dL Total Bilirubin 0.9 (0.2-1.3) mg/dL AST 25 (14-36) U/L ALT 9 (6-35) U/L Alkaline Phosphatase 54 (38-126) U/L Total Protein 7.0 (6.3-8.2) g/dL Albumin 4.4 (3.5-5.1) g/dL Lipase 90 (23-300) U/L Urine Test Negative Discharge Plan Discharge Clinical Impression: Gastroenteritis Patient Disposition: Home Condition: Stable Instructions: Antibiotic Form, Gastroenteritis (ED) Patient Language: Hong Konger Prescriptions: New ondansetron 4 mg tablet,disintegrating 4 mg PO Q8H PRN (Reason: nausea and vomiting) Qty: 10 0RF No Action multivitamin [Daily Multi-Vitamin] Tablet 1 tablet PO DAILY Liletta 20.4 mcg/24 hrs (8 yrs) 52 mg intrauterine device 1 device I-UTERINE ONCE Rx Instructions: inserted 2020 Saccharomyces boulardii [Daily Probiotic (S. boulardii)] 250 mg capsule 5,000 mmu cells PO DAILY cyanocobalamin (vitamin B-12) 1,000 mcg tablet, sublingual 1,000 mcg sublingual DAILY Qty: 90 3RF Zepbound 5 mg/0.5 mL pen injector 5 mg subcut WEEKLY Qty: 2 0RF Follow-up/Referrals: Jane Moon APRN [Primary Care Provider, [facility]] Time of Disposition: 18:18
[2025-01-07 17:17] LABS: Pregnancy On Board Control Positive
--- OUTSIDE RECORDS SUMMARY | 2025-01-07 17:18 | XMS_ITS | Clinical Summary ---
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
--- OUTSIDE RECORDS SUMMARY | 2025-01-07 17:18 | XMS_ITS | Encounter Summary ---
Author Organization [facility] Address [address] [place] [address] Care Team Providers Care Palliative Care Nurse Practitioner Name Role Phone Anahi Tan MD Primary Care Provider [phone] Encounter Details Date Type Department Care Team (Late st Contact Info) Description 04/18/2004 Outpatient Historical [facility] Internal Medicine - [place] [address] [place] [address] [place] [address] [place] [address] Social History Tobacco Use Types Packs/Day Years Used Date Smoking Tobacco: Never Assessed Comments Unknown Sex and Gender Information Value Date Recorded Sex Assigned at Not on file Legal Sex Female 3:00 AM 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
--- OUTSIDE RECORDS SUMMARY | 2025-01-07 17:18 | XMS_ITS | Encounter Summary ---
Author Organization [facility] Address [address] [place] [address] Care Team Providers Care Labor Commissioner Name Role Phone Jesse Dean MD Primary Care Provider [phone] José Miguel Song MD Primary Care Provider [phone] Jane Moon NP Primary Care Provider [phone] Encounter Details Date Type Department Care Team (Late st Contact Info) Description 01/11/2018 Documentation [facility] Case Management [address] [place] [address] Bebe Lezama RN Social History Tobacco Use Types Packs/Day Years Used Date Smoking Tobacco: Former Cigarettes 0 01/01/1998 - 01/02/2000 Smokeless Tobacco: Never Alcohol Use Standard Drinks/Week Comments No 0 (1 standard drink = 0.6 oz pur e alcohol) Comments No Sex and Gender Information Value Date Recorded Sex Assigned at Not on file Legal Sex Female 10:51 AM FLITCH HANGER Gender Identity Female 10/15/2019 7:47 AM CDT Sexual Orientation Straight 10/15/2019 7: 47 AM CDT documented as of this encounter Plan of Treatment Not on file documented as of this encounter Visit Diagnoses Not on filedocumented in this encounter Care Teams Labor Commissioner Relationship Specialty Start Date End Date Jesse Dean MD PCP - General 5/5/17 10/3/23 José Miguel Song MD PCP - General Endocrinology Diabetes & Metabolism 02/21/23 07/24/23 Jane Moon NP [address] [place] [address] PCP - General Nurse Practitioner 07/25/23 documented as of this encounter
--- OUTSIDE RECORDS SUMMARY | 2025-01-07 17:18 | XMS_ITS | Clinical Summary ---
Author Organization [facility] Address [address] [place] [address] Care Team Providers Care Clothes Separator Name Role Phone José Miguel Song MD Primary Care Provider [phone] Allergies Active Allergy Reactions Criticality Noted Date [...] on file Legal Sex Female 5:50 PM DATA CONTROL ASSISTANT Gender Identity Not on file Sexual Orientation [...] patient's age to complete this topic Insurance [facility] Care Teams Clothes Separator Relationship Specialty Start Date End Date José Miguel Song MD [facility] [facility] [address] [place] [address] PCP - General ENDOCRINOLOGY 09/01/22
--- OUTSIDE RECORDS SUMMARY | 2025-01-07 17:18 | XMS_ITS | Encounter Summary ---
Author Organization [facility] Address [facility] [place] [address] Care Team Providers Care Multimedia Journalist Name Role Phone José Miguel Song MD Primary Care Provider [phone] Encounter Details Date Type Department Care Team (Late st Contact Info) Description 10/26/2018 Abstract [facility] CONVERSION [address] [address] , Generic Conversion, Social History Tobacco Use Types Packs/Day Years Used Date Smoking Tobacco: Never Assessed Comments Unknown Sex and Gender Information Value Date Recorded Sex Assigned at Not on file 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
--- OUTSIDE RECORDS SUMMARY | 2025-01-07 17:18 | XMS_ITS | Encounter Summary ---
Author Organization [facility] Address [address] [place] [address] Care Team Providers Care Feeder Operator Name Role Phone Anahi Tan MD Primary Care Provider [phone] Encounter Details Date Type Department Care Team (Late st Contact Info) Description 11/02/2003 Outpatient Historical [facility] Internal Medicine - [place] [address] [place] [address] [place] [address] [facility] [place] [address] Social History Tobacco Use Types Packs/Day Years Used Date Smoking Tobacco: Never Assessed Comments Unknown Sex and Gender Information Value Date Recorded Sex Assigned at Not on file 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
--- OUTSIDE RECORDS SUMMARY | 2025-01-07 17:18 | XMS_ITS | Clinical Summary ---
Author Organization [facility] Address [address] [place] [address] Care Team Providers Care Hand Engraver Name Role Phone Kimhaylie Jane JOESPH Primary Care Provider [phone] Allergies Active Allergy Reactions Criticality Noted Date [...] (11/07/2017): Added automatically from request for surgery [id number] Hypertension 11/02/2017 Overview (11/02/2017): On Amlodipin 10 [...] TUBES Myringotomy - (Added by TW Conv) WI CHOLECYSTECTOMY Cholecystectomy - (Added by TW Conv) [...] on file Legal Sex Female 10:51 AM SHRINK PIT SUPERVISOR Gender Identity Female 10/15/2019 7:47 AM CDT Sexual Orientation Straight 10/15/2019 7: 47 AM CDT Obstetrics History Last Filed Vital Signs Vital Sign Reading Time Taken Comments Blood Pressure 147/81 07/25/2023 8:08 AM SHRINK PIT SUPERVISOR Pulse 62 07/25/2023 8:08 AM SHRINK PIT SUPERVISOR Temperature 36.9 C (98.4 F) 07/25/2023 8:08 AM SHRINK PIT SUPERVISOR Respiratory Rate 12 01/22/2018 3:34 AM CDT Oxygen Saturation 100% 07/25/2023 8:08 AM SHRINK PIT SUPERVISOR Inhaled Oxygen Concentration - - Weight 91.4 kg (201 lb 8 oz) 07/25/2023 8:08 AM SHRINK PIT SUPERVISOR Height 177.8 cm (5' 10) 07/25/2023 8:08 AM SHRINK PIT SUPERVISOR Body Mass Index 28.91 07/25/2023 8:08 AM SHRINK PIT SUPERVISOR Plan of Treatment Health Maintenance Due Date [...] patient's age to complete this topic Insurance [employer] [facility] [address] [employer] [facility] [employer] Advance Directives For more information, please contact: [phone] * Full Code (Latest Code Status on File) Date Activated Date Inactivated Comments 01/09/2018 5:33 PM 01/11/2018 4:08 PM Care Teams Hand Engraver Relationship Specialty Start Date End Date Jane Moon NP [address] [place] [address] PCP - General Nurse Practitioner 07/25/23
--- OUTSIDE RECORDS SUMMARY | 2025-01-07 17:18 | XMS_ITS | Encounter Summary ---
Author Organization [facility] Address [address] [place] [address] Care Team Providers Care Pci Security Consultant Name Role Phone Anahi Tan MD Primary Care Provider [phone] Encounter Details Date Type Department Care Team (Late st Contact Info) Description 11/02/2003 Outpatient Historical [facility] Internal Medicine - [place] [address] [place] [address] [place] [address] [facility] [place] [address] Social History Tobacco Use Types Packs/Day Years Used Date Smoking Tobacco: Never Assessed Comments Unknown Sex and Gender Information Value Date Recorded Sex Assigned at Not on file Legal Sex Female 3:00 AM PLUMBER CUB Gender Identity Not on file Sexual Orientation Not on file documented as of this encounter Plan of Treatment Not on file documented as of this encounter Visit Diagnoses Not on filedocumented in this encounter Care Teams Pci Security Consultant Relationship Specialty [place] [address] [facility] [place] [address] PCP - General 09/25/07 documented as of this encounter
--- OUTSIDE RECORDS SUMMARY | 2025-01-07 17:18 | XMS_ITS | Encounter Summary ---
Author Organization [facility] Address [address] [place] [address] Care Team Providers Care Pre Sales Network Engineer Name Role Phone Anahi Tan MD Primary Care Provider [phone] Encounter Details Date Type Department Care Team (Late st Contact Info) Description 04/18/2004 Outpatient Historical [facility] Internal Medicine - [place] [address] [place] [address] [place] [address] [place] [facility] [address] Social History Tobacco Use Types Packs/Day Years Used Date Smoking Tobacco: Never Assessed Comments Unknown Sex and Gender Information Value Date Recorded Sex Assigned at Not on file Legal Sex Female 3:00 AM CHEF CONCIERGE Gender Identity Not on file Sexual Orientation Not on file documented as of this encounter Plan of Treatment Not on file documented as of this encounter Visit Diagnoses Not on filedocumented in this encounter Care Teams Pre Sales Network Engineer Relationship Specialty [place] [address] [place] [facility] [address] PCP - General 09/25/07 documented as of this encounter
--- OUTSIDE RECORDS SUMMARY | 2025-01-07 17:18 | XMS_ITS | Encounter Summary ---
Author Organization [facility] Address 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
--- OUTSIDE RECORDS SUMMARY | 2025-01-07 17:18 | XMS_ITS | Encounter Summary ---
Author Organization [facility] Address [address] [place] [address] Phone Care Team Providers Care Business Development Coordinator Name Role Phone José Miguel Song MD Primary Care Provider [phone] Jane Moon NP Primary Care Provider Encounter Details Date Type Department Care Team [...] on file Legal Sex Female 10:51 AM LARGE SHEETFED PRESS OPERATOR Gender Identity Female 10/15/2019 7:47 AM CDT [...] on filedocumented in this encounter Care Teams Business Development Coordinator Relationship Specialty Start Date End Date José Miguel Song MD PCP - General Endocrinology Diabetes & Metabolism 02/21/23 07/24/23 Jane Moon NP [address] [place] [address] PCP - General Nurse Practitioner 07/25/23 documented as of this encounter
[2025-01-07] MEDS: LACTATED RINGERS 1,000 ML 999 ML IV CONT (17:22)
[2025-01-07 17:31] LABS: Hematocrit 42.7 % (35.0-49.0); Hemoglobin 14.3 g/dL (12.0-15.0); Mean Corpuscular HGB Conc 33.5 g/dL (32-36); Mean Corpuscular Hemoglobin 31.2 pg (27.0-31.0); Mean Corpuscular Volume 93.2 fL (78.0-102.0); Platelet Count Result 228 K/mm3 (150-420); Red Blood Count 4.58 M/mm3 (4.20-5.40); White Blood Count 7.5 K/mm3 (4.8-10.8)
[2025-01-07 17:43] LABS: Lipase 90 U/L (23-300); Magnesium 1.6 mg/dL (1.6-2.3)
[2025-01-07 17:44] LABS: Alanine Aminotransferase 9 U/L (6-35); Albumin Level 4.4 g/dL (3.5-5.1); Alkaline Phosphatase 54 U/L (38-126); Anion Gap 16 mmol/L (4-12); Aspartate Amino Transferase 25 U/L (14-36); Bilirubin,Total 0.9 mg/dL (0.2-1.3); Blood Urea Nitrogen 5 mg/dL (7-17); Calcium 9.0 mg/dL (8.4-10.2); Carbon Dioxide 18 mmol/L (22-30); Chloride 105 mmol/L (98-107); Estimated CRCL calculation 96 ml/min; Estimated Glomerular Filt Rate > 60; Glucose 66 mg/dL (65-110); INR 1.0; Osmolality Calculated 283 mOsm/kg (285-295); Potassium 3.6 mmol/L (3.4-5.0); Prothrombin Time 11.4 Seconds (9.50-12.1); Sodium 139 mmol/L (137-145); Total Protein 7.0 g/dL (6.3-8.2)
[2025-01-07 18:00] LABS: Band Neutrophils Percent 0 % (0-6); Eosinophils Absolute Manual 0.15 K/mm3 (0.02-0.50); Eosinophils Percent Manual 2 % (1-6); Lymphocytes Absolute Manual 2.47 K/mm3 (1.1-4.5); Lymphocytes Percent Manual 33 % (18-44); Monocytes Absolute Manual 0.52 K/mm3 (0.1-0.90); Monocytes Percent Manual 7 % (3-9); Neutrophils Absolute Manual 4.35 K/mm3 (1.3-6.7); Neutrophils Percent Manual 58 % (46-73); Total Cells Counted 100
[2025-01-07 18:01] LABS: Anisocytosis 2+; Schistocytes None Seen
[2025-01-07 18:36] VITALS: BP 118/79; PULSE 79; RESP 16; TEMP 36.7; O2SAT 99
== END 2025-01-07 18:37 | disposition home or self-care (01) ==
PROVIDERS: Emergency Provider Internal Medicine Critical Care Medicine; PCP Nurse Practitioner Adult Health
DX: K52.9 Noninfective gastroenteritis and colitis, unspecified (principal)
CPT/HCPCS: 36415; 80053; 81025; 83605; 83690; 83735; 85025; 85610; 96360; 99283; J7120

== ENCOUNTER 2025-05-05 08:05 | Outpatient (CLI) | payer OTHER, SELFPAY ==
--- NOTE | ~2025-05-05 | XR_ITS ---
EXAMINATION: XR_RIBSBI_CR, 05/05/2025 8:12 PHARMACIST HISTORY: R07.89 - Other chest pain COMPARISON: No comparisons available. Findings: No acute fracture or malalignment. No significant degenerative changes. Soft tissues unremarkable. Impression: No acute fracture or malalignment. Reviewed, dictated and finalized at location P. MACIST Impression: No acute fracture or malalignment.
--- OUTSIDE RECORDS SUMMARY | 2025-05-05 08:18 | XMS_ITS | Encounter Summary ---
Author Organization [facility] Address [address] [place] [address] Care Team Providers Care Home Teaching Grades 7 And 8 Teacher Name Role Phone Anahi Tan MD Primary Care Provider [phone] Encounter Details Date Type Department Care Team (Late st Contact Info) Description 04/18/2004 Outpatient Historical [facility] Internal Medicine - [place] [address] [place] [address] [place] [address] [place] [address] Social History Tobacco Use Types Packs/Day Years Used Date Smoking Tobacco: Never Assessed Comments Unknown Sex and Gender Information Value Date Recorded Sex Assigned at Not on file Legal Sex Female 3:00 AM PLATFORM INSPECTOR Gender Identity Not on file Sexual Orientation Not on file documented as of this encounter Plan of Treatment Not on file documented as of this encounter Visit Diagnoses Not on filedocumented in this encounter Care Teams Home Teaching Grades 7 And 8 Teacher Relationship Specialty [place] [address] [place] [facility] [place] [address] PCP - General 09/25/07 documented as of this encounter
--- OUTSIDE RECORDS SUMMARY | 2025-05-05 08:18 | XMS_ITS | Encounter Summary ---
Author Organization [facility] Address [address] [place] [address] Care Team Providers Care Personnel Scheduler Name Role Phone Anahi Tan MD Primary Care Provider [phone] Encounter Details Date Type Department Care Team (Late st Contact Info) Description 04/18/2004 Outpatient Historical [facility] Internal Medicine - [place] [address] [place] [address] [place] [address] [place] [address] Social History Tobacco Use Types Packs/Day Years Used Date Smoking Tobacco: Never Assessed Comments Unknown Sex and Gender Information Value Date Recorded Sex Assigned at Not on file 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
--- OUTSIDE RECORDS SUMMARY | 2025-05-05 08:18 | XMS_ITS | Encounter Summary ---
Author Organization [employer] Address 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
--- OUTSIDE RECORDS SUMMARY | 2025-05-05 08:19 | XMS_ITS | Encounter Summary ---
Author Organization [facility] Address [address] [place] [address] Care Team Providers Care Dairy Tester Name Role Phone Anahi Tan MD Primary Care Provider [phone] Encounter Details Date Type Department Care Team (Late st Contact Info) Description 11/02/2003 Outpatient Historical [facility] Internal Medicine - [place] [address] [place] [address] [place] [address] [place] [place] [address] Social History Tobacco Use Types Packs/Day Years Used Date Smoking Tobacco: Never Assessed Comments Unknown Sex and Gender Information Value Date Recorded Sex Assigned at Not on file 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
--- OUTSIDE RECORDS SUMMARY | 2025-05-05 08:19 | XMS_ITS | Encounter Summary ---
Author Organization [facility] Address [facility] [place] [address] Care Team Providers Care Botanical Technical Officer Name Role Phone José Miguel Song MD Primary Care Provider [phone] Encounter Details Date Type Department Care Team (Late st Contact Info) Description 10/26/2018 Abstract [facility] CONVERSION [address] [address] , Generic Conversion, Social History Tobacco Use Types Packs/Day Years Used Date Smoking Tobacco: Never Assessed Comments Unknown Sex and Gender Information Value Date Recorded Sex Assigned at Not on file 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
--- OUTSIDE RECORDS SUMMARY | 2025-05-05 08:19 | XMS_ITS | Encounter Summary ---
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
--- OUTSIDE RECORDS SUMMARY | 2025-05-05 08:19 | XMS_ITS | Encounter Summary ---
Author Organization [facility] Address [address] [place] [address] Care Team Providers Care Architecture Instructor Name Role Phone Jesse Dean MD Primary Care Provider José Miguel Song MD Primary Care Provider [phone] Jane Moon NP Primary Care Provider Encounter Details Date Type Department Care Team (Late st Contact Info) Description 01/11/2018 Documentation [facility] Case Management [address] [place] [address] Bebe Lezama RN Social History Tobacco Use Types Packs/Day Years Used Date Smoking Tobacco: Former Cigarettes 0 01/01/1998 - 01/02/2000 Smokeless Tobacco: Never Alcohol Use Standard Drinks/Week Comments No 0 (1 standard drink = 0.6 oz pur e alcohol) Comments No Sex and Gender Information Value Date Recorded Sex Assigned at Not on file 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 Gender Identity Female 10/15/2019 7:47 AM CDT Sexual Orientation Straight 10/15/2019 7: 47 AM CDT documented as of this encounter Functional Status * Mahmood Fall Risk Question Answer Date of Assessment Author History of Falling 0 01/11/2018 1:00 PM GARETHT Meche Granda RN Secondary Diagnosis 0 01/11/2018 1:00 PM CD T Meche Granda RN Ambulatory Aids 0 01/11/2018 1:00 PM CDT Meche Duncan RN Intravenous Therapy/Heparin/ Saline Lock 0 01/11/2018 1:00 PM CDT Meche Granda, ALISSA Gait/Transferring 0 01/11/2018 1:00 PM Meche Schneider RN Mental Status 0 01/11/2018 1:00 PM CDT Meche Alatorre, ALISSA * Param Scale Question Answer Date of Assessment Author Sensory Perceptions 4 01/11/2018 1:00 PM CD T Meche Granda RN Moisture 4 01/11/2018 1:00 PM CDT Meche Mistry RN Activity 4 01/11/2018 1:00 PM CDT Meche Mistry RN Mobility 3 01/11/2018 1:00 PM CDT Meche Mistry RN Nutrition 3 01/11/2018 1:00 PM CDT Meche Mistry RN Friction and Shear 3 01/11/2018 1:00 PM CDT Meche Granda RN Param Scale Score 21 01/11/2018 1:00 PM GARETHT Meche Granda RN * Question Answer Date of Assessment Author BP Location Right arm 01/11/2018 3:43 AM GARETHT Jade Medina BP Method Automatic 01/11/2018 3:43 AM GARETHT Jade Medina * Fall Risk Interventions Question Answer Date of Assessment Author All Low Fall Interventions Applied Yes 2017 1:00 PM Meche Schneider RN * Question Answer Date of Assessment Author BP Location Right arm 01/11/2018 3:43 AM CDT Jade Medina BJyothi BP Method Automatic 01/11/2018 3:43 AM CDT Jade Medina BJyothi * Question Answer Date of Assessment Author Bed In Lowest Position Yes 01/11/2018 7:30 AM Meche Schneider, RN Bed Wheels Locked Yes 01/11/2018 7:30 AM eMche Schneider RN * Fall Risk Interventions Question Answer Date of Assessment Author All Low Fall Interventions Applied Yes 2017 1:00 PM Meche Schneider RN documented as of this encounter Plan of Treatment Not on file documented as of this encounter Visit Diagnoses Not on filedocumented in this encounter Care Teams Architecture Instructor Relationship Specialty Start Date End Date Jesse Dean MD PCP - General 09/22/16 02/20/23 José Miguel Song MD PCP - General Endocrinology Diabetes & Metabolism 02/21/23 07/24/23 Jane Moon NP [address] [place] [address] PCP - General Nurse Practitioner 07/25/23 documented as of this encounter
--- OUTSIDE RECORDS SUMMARY | 2025-05-05 08:19 | XMS_ITS | Clinical Summary ---
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 Gender Identity Not on file Sexual Orientation [...] 30 to 64) Every 3 Years 1980 Colorectal Cancer Screening Colonoscopy (10 Years) 1980 Annual Physical 1983 Hepatitis C 1998 Hepatitis B Vaccines (1 of 3 - 19+ 3-dose series) 1999 HPV Vaccines (1 - 3-dose SCD M series) 2007 Cervical Cancer Screening Pa p with HPV Testing (Age 30 to 64) Every 5 Years 2010 Cervical Cancer Screening wi th HPV 2010 Mammogram Screening 2020 COVID-19 Vaccine (2024-2 6 season) 2025 06/21/2021, 01/18/2021, 12/28/2020 Influenza Adult (#1) 2025 08/30/2021 DTaP, Tdap and Td Vaccines ( 2 - Td or Tdap) 09/01/2032 09/01/2022 Hepatitis A Vaccines Aged Out No long er eligible based on patient's age to complete [...] patient's age to complete this topic Insurance [facility] Care Teams Vegetable Loader Relationship Specialty Start Date End Date José Miguel Song MD [address] [facility] [address] [facility], [place] [address] PCP - General ENDOCRINOLOGY 09/01/22
--- OUTSIDE RECORDS SUMMARY | 2025-05-05 08:19 | XMS_ITS | Clinical Summary ---
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 Gender Identity Female 10/15/2019 7:47 AM CDT Sexual Orientation Straight 10/15/2019 7: 47 AM CDT Last Filed Vital Signs Vital Sign Reading Time Taken Comments Blood Pressure 147/81 07/25/2023 8:08 AM MEDICAL EDUCATION MANAGER Pulse 62 07/25/2023 8:08 AM MEDICAL EDUCATION MANAGER Temperature 36.9 C (98.4 F) 07/25/2023 8:08 AM MEDICAL EDUCATION MANAGER Respiratory Rate 12 01/22/2018 3:34 AM CDT Oxygen Saturation 100% 07/25/2023 8:08 AM MEDICAL EDUCATION MANAGER Inhaled Oxygen Concentration - - Weight 91.4 kg (201 lb 8 oz) 07/25/2023 8:08 AM MEDICAL EDUCATION MANAGER Height 177.8 cm (5' 10) 07/25/2023 8:08 AM MEDICAL EDUCATION MANAGER Body Mass Index 28.91 07/25/2023 8:08 AM MEDICAL EDUCATION MANAGER Plan of Treatment Health Maintenance Due Date Last Done Comments Breast Cancer Screening-Mammogram 1980 Cervical Cancer Screening 1980 Colon Cancer Screening-Colonoscopy 1980 Depression Screening 1980 Hepatitis C Screening 1980 Varicella Vaccines (1 of 2 - 13+ 2-dose series) 1993 Hepatitis B Screening 1998 Regular Well Visit/Exam 18-64 1998 HPV Vaccines (1 - 3-dose SCD M series) 2007 Covid-19 Vaccine (2024-2 6 season) 2025 06/21/2021, 01/18/2021, 12/28/2020 Influenza Vaccine (#1) 2025 08/30/2021 DTaP/Tdap/Td Vaccine (2 - Td or Tdap) 09/01/2032 09/01/2022 Pneumococcal vaccine <65 Aged Out No longer eligible based on patient's age to complete this topic Insurance [facility]PPO Address: [address] [employer] [facility] H[facility]/PPO Address: [address] [address] [place] [address] [facility] [employer] [place] Advance Directives For more information, please contact: [phone] * Full Code (Latest Code Status on File) Date Activated Date Inactivated Comments 01/09/2018 5:33 PM 01/11/2018 4:08 PM Care Teams Volunteer Fire Fighter Relationship Specialty Start Date End Date Jane Moon NP [address] [place] [address] PCP - General Nurse Practitioner 07/25/23
--- OUTSIDE RECORDS SUMMARY | 2025-05-05 08:19 | XMS_ITS | Encounter Summary ---
Author Organization [facility] Address [address] [place] [address] Care Team Providers Care Tankage Grinder Name Role Phone Anahi Tan MD Primary Care Provider Encounter Details Date Type Department Care Team (Late st Contact Info) Description 11/02/2003 Outpatient Historical [facility] Internal Medicine - [place] [address] [place] [address] [place] [address] [facility] 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 [address] PCP - General 09/25/07 documented as of this encounter
--- OUTSIDE RECORDS SUMMARY | 2025-05-05 08:19 | XMS_ITS | Clinical Summary ---
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 Gender Identity Not on file Sexual Orientation Not on file Plan of Treatment Health Maintenance Due Date Last Done Comments DTAP/TDAP/TD VACCINES (1 - Tdap) 1999 HEPATITIS B VACCINES (1 of 3 - 19+ 3-dose series) 02/18 HPV/Cotest (21-29) 2001 CERVICAL CANCER SCREENING 2010 HPV/Cotest (30-65) 2010 PAP SMEAR 2010 BREAST CANCER SCREENING 2020 INFLUENZA VACCINE (#1) 2024 COLORECTAL SCREENING 2025 Colorectal Cancer Screening 2025 FIT-DNA Q 3 years 2025 FIT/FOBT Q 1 year 2025 Flex Sig/CT Colonography Q 5 years 2025 HPV VACCINES (No Doses Required) Completed Care Teams Traffic Engineer Relationship Specialty [place] [address] [facility] [place] [address] PCP - General 09/25/07
[2025-05-05 19:34] LABS: Alanine Aminotransferase 10 U/L (6-35); Albumin Level 4.1 g/dL (3.5-5.1); Alkaline Phosphatase 44 U/L (38-126); Anion Gap 6 mmol/L (4-12); Aspartate Amino Transferase 67 U/L (14-36); Bilirubin,Total 1.2 mg/dL (0.2-1.3); Blood Urea Nitrogen 9 mg/dL (7-17); Calcium 9.2 mg/dL (8.4-10.2); Carbon Dioxide 26 mmol/L (22-30); Chloride 106 mmol/L (98-107); Cholesterol 178 mg/dL (0-200); Estimated Glomerular Filt Rate > 60; Glucose 82 mg/dL (65-110); HDL Direct 55 mg/dL; Potassium 4.1 mmol/L (3.4-5.0); Sodium 138 mmol/L (137-145); Total Protein 7.3 g/dL (6.3-8.2); Triglycerides 68 mg/dL (<150)
[2025-05-05 20:29] LABS: Vitamin B12 > 1000.0 pg/mL (239-931)
== END 2025-05-05 08:06 | disposition home or self-care (01) ==
PROVIDERS: PCP Nurse Practitioner Adult Health; Visit Provider Nurse Practitioner Adult Health
DX: R07.89 Other chest pain (principal); Z98.84 Bariatric surgery status
CPT/HCPCS: 36415; 71110; 80053; 80061; 82607